=== PATIENT | male | born 1935 | race African-American/Black ===

== ENCOUNTER 2016-10-19 12:00 | Inpatient (IN) | payer MEDICARE, OTHER ==
[2016-10-19] VITALS (12 sets, daily range): BP systolic 143–243; BP diastolic 74–131; PULSE 72–105; RESP 12–21; TEMP 97.6; O2SAT 97–100
[~2016-10-19] VITALS: Ht 172.7 cm; Wt 85.0 kg
[~2016-10-19 12:00] MED LIST: AMLO10 PO; ASPI81 PO; HYDR-2768 PO; LABE200T2 PO; VITA400C28 PO
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
[2016-10-19] MEDS ORDERED: ASPIRIN 81 MG CHEW TAB CHEW ONE (13:15)
[2016-10-19] MEDS ORDERED: hydrALAZINE HCL 20 MG/ML VIAL IV PUSH ONE ×2 (13:15→16:15)
--- NOTE | 2016-10-19 13:17 | PD ---
Physical Exam Date Seen by Provider: Oct 19, 2016 Time Seen by Provider: 13:14 Narrative 81-year-old male presents to the emergency department for evaluation of left- sided chest pain that has been intermittent over the past month. He states that his son made him come to the emergency department today. He reports having left-sided chest pain earlier today, but denies any chest pain at this time. He does report a history of high cholesterol, hypertension, but is not currently taking any medications. He states he does not currently have a primary care physician. He denies any cardiac history. Patient denies any alleviating or exacerbating factors. He denies any nausea or vomiting. No diaphoresis. No headache. Patient was initially seen in triage workup was initiated there. Patient denies any recent surgery or travel. Denies any history of PE or DVT. He denies hemoptysis. GENERAL: Well-developed well-nourished male patient, ambulatory. Afebrile. SKIN: Warm and dry. HEAD: Normocephalic. Atraumatic. EYES: No scleral icterus. No injection or drainage. NECK: Supple, trachea midline. No JVD or lymphadenopathy. CARDIOVASCULAR: Regular rate and rhythm without murmurs, gallops, or rubs. RESPIRATORY: Breath sounds equal bilaterally. No accessory muscle use. Lungs sounds are clear to auscultation. GASTROINTESTINAL: Abdomen soft, non-tender, nondistended. MUSCULOSKELETAL: No cyanosis, or edema. BACK: Nontender without obvious deformity. No CVA tenderness. Data Data Last Documented VS Vital Signs Date Time Temp Pulse Resp B/P Pulse Ox O2 Delivery O2 Flow Rate FiO2 10/19/16 16:45 93 18 172/79 98 10/19/16 16:00 Room Air 10/19/16 12:02 97.6 Orders Electrocardiogram (10/19/16 12:17) Basic Metabolic Panel (Bmp) (10/19/16 12:17) Ckmb (Isoenzyme) Profile (10/19/16 12:17) Complete Blood Count With Diff (10/19/16 12:17) Magnesium (Mg) (10/19/16 12:17) Prothrombin Time / Inr (Pt) (10/19/16 12:17) Act Partial Throm Time (Ptt) (10/19/16 12:17) Troponin I (10/19/16 12:17) Lipase (10/19/16 12:17) Chest, Single Ap (10/19/16 12:17) Aspirin Chew (Aspirin Chew) (10/19/16 13:15) Hydralazine Inj (Apresoline Inj) (10/19/16 13:15) Consult Vascular Access Team (10/19/16 ) CKMB (10/19/16 14:35) CKMB% (10/19/16 14:35) Hydralazine Inj (Apresoline Inj) (10/19/16 16:15) Amlodipine (Norvasc) (10/19/16 17:00) Admit Order (Ed Use Only) (10/19/16 16:52) Labs Laboratory Tests Test 10/19/16 10/19/16 14:35 15:30 Sodium Level 138 MEQ/L Potassium Level 4.2 MEQ/L Chloride Level 107 MEQ/L Carbon Dioxide Level 25.3 MEQ/L Anion Gap 6 MEQ/L Blood Urea Nitrogen 11 MG/DL Creatinine 1.07 MG/DL Estimat Glomerular Filtration 80 ML/MIN Rate Random Glucose 82 MG/DL Calcium Level 8.6 MG/DL Magnesium Level 2.1 MG/DL Total Creatine Kinase 581 U/L Creatine Kinase MB 8.2 NG/ML Creatine Kinase MB % 1.4 % Troponin I 0.05 NG/ML Lipase 89 U/L White Blood Count 4.8 TH/MM3 Red Blood Count 5.32 MIL/MM3 Hemoglobin 15.1 GM/DL Hematocrit 45.9 % Mean Corpuscular Volume 86.3 FL Mean Corpuscular Hemoglobin 28.4 PG Mean Corpuscular Hemoglobin 32.9 % Concent Red Cell Distribution Width 15.5 % Platelet Count 196 TH/MM3 Mean Platelet Volume 8.6 FL Neutrophils (%) (Auto) 46.3 % Lymphocytes (%) (Auto) 37.3 % Monocytes (%) (Auto) 12.3 % Eosinophils (%) (Auto) 3.2 % Basophils (%) (Auto) 0.9 % Neutrophils # (Auto) 2.2 TH/MM3 Lymphocytes # (Auto) 1.8 TH/MM3 Monocytes # (Auto) 0.6 TH/MM3 Eosinophils # (Auto) 0.2 TH/MM3 Basophils # (Auto) 0.0 TH/MM3 CBC Comment DIFF FINAL Differential Comment Prothrombin Time 11.4 SEC Prothromb Time International 1.0 RATIO Ratio Activated Partial 28.0 SEC Thromboplast Time [facility] Medical Record Reviewed: Yes Supervised Visit with MILA: No Interpretation(s) Last Impressions Chest X-Ray 10/19/16 1217 Signed Impressions: Service Date/Time: Wednesday, October 19, 2016 13:29 - CONCLUSION: No acute disease. No significant change has occurred. Terry Pavon MD Differential Diagnosis ACS versus chest wall pain versus angina versus pneumonia versus pneumothorax Narrative Course 81-year-old elderly male presents to the emergency department for evaluation of intermittent left-sided chest pain for 1 month. Patient has no chest pain at this time. Blood pressure is elevated in triage. CBC, BMP, CK, troponin, lipase, magnesium, PTT, PTT/INR ordered and pending. EKG shows sinus rhythm, no acute ST changes. Patient is given aspirin 324 mg by mouth and hydralazine 10 mg IV for hypertension. CBC shows no acute abnormality. BMP shows no acute abnormality. CK is 581. Troponin is 0.05. Magnesium is 2.1. Lipase is 89. Coags show no acute abnormality. Chest x-ray shows no acute disease. No significant change has occurred. Patient will be brought into the chest pain center for further evaluation and disposition. The patient is agreeable to this plan. 1932 - the patient was admitted to the chest pain center. He is brought to my attention that the second troponin 1829 was elevated 0.12. I paged Dr. Everett, manager regional athletic monitor. 1943 - Dr. Everett returned my page. She believes the elevated troponin is due to hypertension. She would like the patient to be admitted to [facility] with her consulted. [facility] is paged for admission. 1952 - Dr. Bruce accepted admission. Diagnosis Primary Impression: Chest pain Qualified Code: R07.9 - Chest pain, unspecified type Additional Impression: Elevated troponin Admitting Information Admitting Physician Requests: Admit Palma Peres Oct 19, 2016 13:17
--- NOTE | 2016-10-19 13:51 | RADRPT ---
EXAM DATE/TIME: 10/19/2016 13:29 [facility] COMPARISON: CHEST SINGLE AP, August 28, 2010, 12:56. INDICATIONS : Chest pain. MEDICAL HISTORY : Hypertension. SURGICAL HISTORY : None. ENCOUNTER: Initial ACUITY: 1 day PAIN SCORE: 5/10 LOCATION: Left upper chest FINDINGS: A single view of the chest demonstrates the lungs to be symmetrically aerated without evidence of mas s, infiltrate or effusion. The cardiomediastinal contours are unremarkable. Osseous structures are intact. CONCLUSION: No acute disease. No significant change has occurred. Terry Pavon MD on October 19, 2016 at 13:49 Board Certified Radiologist. This report was verified electronically.
[2016-10-19 15:21] LABS: BICARBONATE 25.3 MEQ/L (21.0-32.0); MAGNESIUM 2.1 MG/DL (1.5-2.5); POTASSIUM 4.2 MEQ/L (3.5-5.1)
[2016-10-19 15:41] LABS: CKMB 8.2 NG/ML (0.5-3.6)
[2016-10-19 15:48] LABS: AUTOMATED NEUTROPHIL # 2.2 TH/MM3 (1.8-7.7); BASOPHIL % 0.9 % (0.0-2.0); EOSINOPHIL # 0.2 TH/MM3 (0-0.4); EOSINOPHIL % 3.2 % (0.0-4.0); HEMATOCRIT 45.9 % (39.0-51.0); HEMO FLAGS DIFF FINAL; LYMPH % 37.3 % (9.0-44.0); LYMPHOCYTE # 1.8 TH/MM3 (1.0-4.8); MEAN CELL VOLUME 86.3 FL (80.0-100.0); MEAN CORPUSCULAR HEMOGLOBIN 28.4 PG (27.0-34.0); MEAN CORPUSCULAR HGB CONC 32.9 % (32.0-36.0); MONO % 12.3 % (0.0-8.0); NEUT % 46.3 % (16.0-70.0); PLATELET COUNT 196 TH/MM3 (150-450); RED BLOOD COUNT 5.32 MIL/MM3 (4.50-5.90); RED CELL DISTRIBUTION WIDTH 15.5 % (11.6-17.2); WHITE BLOOD COUNT 4.8 TH/MM3 (4.0-11.0)
[2016-10-19 15:58] LABS: PROTHROMBIN TIME - PATIENT 11.4 SEC (9.8-11.6)
--- NOTE | 2016-10-19 16:56 | PD ---
Data Data Last Documented VS Vital Signs Date Time Temp Pulse Resp B/P Pulse Ox O2 Delivery O2 Flow Rate FiO2 10/19/16 16:45 93 18 172/79 98 10/19/16 16:00 Room Air 10/19/16 12:02 97.6 Orders Electrocardiogram (10/19/16 12:17) Basic Metabolic Panel (Bmp) (10/19/16 12:17) Ckmb (Isoenzyme) Profile (10/19/16 12:17) Complete Blood Count With Diff (10/19/16 12:17) Magnesium (Mg) (10/19/16 12:17) Prothrombin Time / Inr (Pt) (10/19/16 12:17) Act Partial Throm Time (Ptt) (10/19/16 12:17) Troponin I (10/19/16 12:17) Lipase (10/19/16 12:17) Chest, Single Ap (10/19/16 12:17) Aspirin Chew (Aspirin Chew) (10/19/16 13:15) Hydralazine Inj (Apresoline Inj) (10/19/16 13:15) Consult Vascular Access Team (10/19/16 ) CKMB (10/19/16 14:35) CKMB% (10/19/16 14:35) Hydralazine Inj (Apresoline Inj) (10/19/16 16:15) Amlodipine (Norvasc) (10/19/16 17:00) Admit Order (Ed Use Only) (10/19/16 16:52) Labs Laboratory Tests Test 10/19/16 10/19/16 14:35 15:30 Sodium Level 138 MEQ/L Potassium Level 4.2 MEQ/L Chloride Level 107 MEQ/L Carbon Dioxide Level 25.3 MEQ/L Anion Gap 6 MEQ/L Blood Urea Nitrogen 11 MG/DL Creatinine 1.07 MG/DL Estimat Glomerular Filtration 80 ML/MIN Rate Random Glucose 82 MG/DL Calcium Level 8.6 MG/DL Magnesium Level 2.1 MG/DL Total Creatine Kinase 581 U/L Creatine Kinase MB 8.2 NG/ML Creatine Kinase MB % 1.4 % Troponin I 0.05 NG/ML Lipase 89 U/L White Blood Count 4.8 TH/MM3 Red Blood Count 5.32 MIL/MM3 Hemoglobin 15.1 GM/DL Hematocrit 45.9 % Mean Corpuscular Volume 86.3 FL Mean Corpuscular Hemoglobin 28.4 PG Mean Corpuscular Hemoglobin 32.9 % Concent Red Cell Distribution Width 15.5 % Platelet Count 196 TH/MM3 Mean Platelet Volume 8.6 FL Neutrophils (%) (Auto) 46.3 % Lymphocytes (%) (Auto) 37.3 % Monocytes (%) (Auto) 12.3 % Eosinophils (%) (Auto) 3.2 % Basophils (%) (Auto) 0.9 % Neutrophils # (Auto) 2.2 TH/MM3 Lymphocytes # (Auto) 1.8 TH/MM3 Monocytes # (Auto) 0.6 TH/MM3 Eosinophils # (Auto) 0.2 TH/MM3 Basophils # (Auto) 0.0 TH/MM3 CBC Comment DIFF FINAL Differential Comment Prothrombin Time 11.4 SEC Prothromb Time International 1.0 RATIO Ratio Activated Partial 28.0 SEC Thromboplast Time MDM Supervised Visit with MILA: Yes Narrative Course The history, exam, and medical decision-making in the associated mid-level provider note were completed with my assistance. I reviewed and agree with the findings presented. I attest that I had a [id number] encounter with the patient on the same day, and personally performed and documented my assessment and findings in the medical record. *My assessment and Findings: 81-year-old man with intermittent chest pain for the past month, somewhat with exertion but not always. History of hypertension hyperlipidemia, out of his blood pressure and cholesterol medicines for a number of months. Had chest pain again this morning but resolved by time he came to the ED. Blood pressure is elevated responded to hydralazine. He looks well. Will need further evaluation for rule out ACS. Condition: Stable Brian Pérez MD Oct 19, 2016 16:55
[2016-10-19] MEDS ORDERED: amLODIPine BESYLATE 5 MG TAB PO ONE (17:00)
[2016-10-19] MEDS ORDERED: SODIUM CHLORIDE 0.9% FLUSH 5 ML FLUSH IVF PRN (17:15)
[2016-10-19 19:29] LABS: CKMB 8.3 NG/ML (0.5-3.6)
[2016-10-19] MEDS ORDERED: NALOXONE HCL 0.4 MG/ML AMP IV PRN (20:00)
[2016-10-19] MEDS ORDERED: SODIUM CHLORIDE 0.9% FLUSH 5 ML FLUSH FLUSH PRN (20:00)
[2016-10-19] MEDS ORDERED: SODIUM CHLORIDE 0.9% FLUSH 5 ML FLUSH IVF SCH (21:00)
[2016-10-19] MEDS: SODIUM CHLORIDE 0.9% FLUSH 5 ML FLUSH FLUSH SCH (21:00)
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
[2016-10-19] MEDS ORDERED: ENOXAPARIN SODIUM 100 MG/ML SYRINGE SQ ONE (21:45)
[2016-10-19 22:09] LABS: CKMB 8.3 NG/ML (0.5-3.6)
[2016-10-20] VITALS (7 sets, daily range): BP systolic 137–220; BP diastolic 70–100; PULSE 77–85; RESP 16–20; TEMP 98.1; O2SAT 96–98
[2016-10-20] MEDS: hydrALAZINE HCL 20 MG/ML VIAL IV PUSH PRN ×2 (02:16→06:11)
[2016-10-20 03:58] LABS: AUTOMATED NEUTROPHIL # 2.1 TH/MM3 (1.8-7.7); BASOPHIL # 0.1 TH/MM3 (0-0.2); BASOPHIL % 2.5 % (0.0-2.0); EOSINOPHIL # 0.2 TH/MM3 (0-0.4); EOSINOPHIL % 3.3 % (0.0-4.0); HEMATOCRIT 51.2 % (39.0-51.0); LYMPH % 46.4 % (9.0-44.0); LYMPHOCYTE # 2.5 TH/MM3 (1.0-4.8); MEAN CELL VOLUME 86.4 FL (80.0-100.0); MEAN CORPUSCULAR HEMOGLOBIN 27.9 PG (27.0-34.0); MEAN CORPUSCULAR HGB CONC 32.3 % (32.0-36.0); NEUT % 38.8 % (16.0-70.0); PLATELET COUNT 189 TH/MM3 (150-450); RED BLOOD COUNT 5.93 MIL/MM3 (4.50-5.90); RED CELL DISTRIBUTION WIDTH 15.7 % (11.6-17.2); WHITE BLOOD COUNT 5.5 TH/MM3 (4.0-11.0)
[2016-10-20 04:08] LABS: HEMO FLAGS AUTO DIFF
[2016-10-20 04:15] LABS: BICARBONATE 25.5 MEQ/L (21.0-32.0); POTASSIUM 3.7 MEQ/L (3.5-5.1)
[2016-10-20 04:34] LABS: CKMB 7.2 NG/ML (0.5-3.6)
[2016-10-20 05:38] LABS: EOSINOPHILS 5 % (0-4); NEUTROPHIL # MANUAL DIFF 2.9 TH/MM3 (1.8-7.7); POLYS (SEG NEUTROPHILS) 53 % (16-70); SCAN/DIFF FINAL DIFF MANUAL; WBC DIFF SAMPLE 100
[2016-10-20] MEDS: SODIUM CHLORIDE 0.9% FLUSH 5 ML FLUSH FLUSH SCH (09:21)
[2016-10-20] MEDS ORDERED: ASPI1TAB69 PO (09:30)
[2016-10-20] MEDS ORDERED: HYDR25TA5 PO (09:30)
[2016-10-20] MEDS ORDERED: LABE200T2 PO (09:30)
[2016-10-20] MEDS ORDERED: VITATAB56 PO (09:30)
[2016-10-20] MEDS ORDERED: AMLO10TA2 PO (09:30)
[2016-10-20] MEDS ORDERED: VITA400C28 PO (09:31)
[2016-10-20] MEDS ORDERED: HEPARIN-NS/PF INJ 500 ML ONE (10:44)
[2016-10-20] MEDS ORDERED: MIDAZOLAM HCL 2 MG/2 ML VIAL ONE (11:03)
[2016-10-20] MEDS ORDERED: IOHEXOL 350 MG/ML 100 ML BTL (for Cath Lab) OTHER ONE (11:35)
--- NOTE | 2016-10-20 13:03 | MA ---
cc: TRENA DUMONT DATE 10/20/2016 DATE OF 1935 PROCEDURE PERFORMED 1. Left heart catheterization 2. Selective right and left coronary angiography. 3. Left ventriculogram INDICATION Chest pain/non-ST elevation IN APPROACH Right transfemoral PROCEDURE DESCRIPTION Consent signed. The patient was brought into the cardiac orthodontic lab technician in a fasting state. The right groin was prepped and draped in a sterile fashion. Using 1% lidocaine for local anesthesia and a micropuncture kit, a 5-Zambian sheath was inserted into the right common femoral artery. Right common femoral artery angiography was performed to confirm position of the sheath. Then selective right and left coronary angiography was performed with a JR-4 and JL-4 diagnostic catheter. The left ventricle was crossed with a 5-Zambian angled pigtail, followed by hemodynamics recording and ventriculogram and pullback. The patient tolerated the procedure well without complications. ESTIMATED BLOOD LOSS Less than 30 cc TOTAL CONTRAST USED 80 cc The right groin access site was closed with manual pressure. ANGIOGRAPHIC DESCRIPTION The left ventricular pressure was 183/80 with an LVEDP of 21. The aortic pressure was 175/92 with a mean of 126. There was no gradient with pullback from the left ventricle to the aorta. Left ventriculogram revealed a symmetrically toni ventricle with an estimated ejection fraction of 60%. ANGIOGRAPHY 1. The right coronary is a nondominant vessel that has LUIGI-3 flow and nonobstructive coronary artery disease. He has an RV branch that is patent. 2. Left main is patent without any CAD. 3. The left circumflex artery is patent with nonobstructive CAD and has LUIGI-3 flow. OM1 is tortuous with LUIGI-3 flow and nonobstructive coronary artery disease. The AV groove part of the circumflex is also patent with nonobstructive CAD giving off the PDA. 4. The ramus vessel has an ostial 40% lesion. It has LUIGI-3 flow. Distal it bifurcates and has minimal luminal irregularities. 5. The LAD is a transapical vessel. It has minimal luminal irregularities throughout, however, it has LUIGI-3 flow and nonobstructive coronary artery disease. Also, he has one diagonal which is a small and patent. CONCLUSION 1. Nonobstructive coronary artery disease. 2. Preserve the LV systolic function 3. Elevated LVEDP RECOMMENDATIONS 1. Continue aggressive medical management for primary prevention of coronary artery disease and hypertension. 2. Therapeutic lifestyle changes. 3. Post cath care. 4. Follow with his primary livestock sales representative upon discharge from the hospital. MD KJ Zimmerman/ANDRE /11:34 AM /12:50 PM GISSELLE
--- NOTE | 2016-10-20 15:24 | HHI.PR ---
Addendum to Inpatient Note Additional Information heart cath is clear , pt cleared for dc by cardiology Discharge patient to home Condition on discharge: Improved healthy heart Diet as tolerated Ad Rahel activity Rx written: see med rec Follow-up with primary care physician in 1 week Ana Sue MD Oct 20, 2016 15:24
--- NOTE | 2016-10-20 15:25 | HHI.PR ---
Subjective Remarks doing well , no cp , sob no f/c Objective Vitals Vital Signs Date Time Temp Pulse Resp B/P Pulse Ox O2 Delivery O2 Flow Rate FiO2 10/20/16 10:35 77 20 157/84 97 10/20/16 09:00 77 19 137/74 96 Room Air 10/20/16 07:42 96 21 10/20/16 07:00 89 96 Room Air 10/20/16 07:00 98.1 85 20 146/70 96 Room Air 10/20/16 06:25 84 16 176/77 96 Room Air 10/20/16 04:14 155/86 10/20/16 02:17 84 16 220/100 98 Room Air 10/19/16 21:05 97 10/19/16 19:26 96 16 167/79 100 Room Air 10/19/16 18:30 105 15 143/83 98 Room Air 10/19/16 17:24 98 18 167/74 98 Room Air 10/19/16 16:45 93 18 172/79 98 10/19/16 16:15 76 212/109 10/19/16 16:00 73 18 216/93 97 Room Air 10/19/16 15:45 72 196/75 10/19/16 15:38 78 21 212/94 99 Room Air Result Diagram: 10/20/16 0338 10/20/16 0328 A/P Problem List: (1) Chest pain ICD Code: R07.9 Status: Acute (2) Elevated troponin ICD Code: R79.89 Status: Acute (3) Hypertensive emergency ICD Code: I16.1 Status: Acute Assessment and Plan 81-year-old male with history of hypertension, DM, osteoarthritis and asthma presented with: Chest pain/elevated troponin, ruled out NSTEMI Consulted cardiology, s/p heart cath which was clear , pt cleared for dc by cardiology Hypertensive emergency, Apresoline IV given in EDx2 -Apresoline 10mg IV PRN -Monitor vitals/tele DVT prophylaxis: scds Discharge Planning Discharge patient to home Condition on discharge: Improved healthy heart Diet as tolerated Ad Rahel activity Rx written: see med rec Follow-up with primary care physician in 1 week Problem Qualifiers (1) Chest pain: Qualified Code: R07.9 - Chest pain, unspecified type Ana Sue MD Oct 20, 2016 15:25
[2016-10-20] MEDS ORDERED: LORazepam 1 MG TAB PO ONE (16:00)
[2016-10-20] MEDS ORDERED: LABETALOL HCL 200 MG TAB PO SCH (21:00)
[2016-10-21] MEDS ORDERED: ASPIRIN EC 81 MG TABEC PO SCH (09:00)
[2016-10-21] MEDS ORDERED: CHOLECALCIFEROL (VIT D3) 400 UNIT TAB PO SCH (09:00)
[2016-10-21] MEDS ORDERED: HYDROCHLOROTHIAZIDE 25 MG TAB PO SCH (09:00)
--- NOTE | 2016-10-21 15:51 | EKG ---
Date Performed: 10/19/2016 Time Performed: 21:13:11 PTAGE: 81 years EKG: Sinus rhythm WITH SINUS ARRHYTHMIA NONSPECIFIC T-WAVE ABNORMALITY BORDERLINE ECG PREVIOUS TRACING : 10/19/2016 18.12 Since previous tracing, no significant change noted DOCTOR: Norberto Barahona Interpretating Date/Time 10/21/2016 15:48:52
--- NOTE | 2016-10-21 15:52 | EKG ---
Date Performed: 10/19/2016 Time Performed: 18:12:45 PTAGE: 81 years EKG: SINUS TACHYCARDIA NONSPECIFIC ST & T-WAVE ABNORMALITY ABNORMAL RHYTHM ECG PREVIOUS TRACING : 10/19/2016 12.28 Since previous tracing, no significant change noted DOCTOR: Norberto Barahona Interpretating Date/Time 10/21/2016 15:50:04
--- NOTE | 2016-10-21 15:54 | EKG ---
Date Performed: 10/19/2016 Time Performed: 12:28:54 PTAGE: 81 years EKG: Sinus rhythm WITH SINUS ARRHYTHMIA NONSPECIFIC T-WAVE ABNORMALITY BORDERLINE ECG PREVIOUS TRACING : 08/29/2010 00.54 Since previous tracing, no significant change noted DOCTOR: Norberto Barahona Interpretating Date/Time 10/21/2016 15:51:42
== END 2016-10-20 17:25 | disposition home or self-care (01) | DRG 287 ==
LOC: NEPA 12:00 → NEDA 16:54 → OBSVTOIN 16:54 → NEDH 23:57 → UNDODEPER 10-21 02:52
PROVIDERS: ADMIT Hospitalist; ATTEND Hospitalist
PROC: B2111ZZ Fluoroscopy of Multiple Coronary Arteries using Low Osmolar Contrast (ICD-10-PCS; 2016-10-20)
PROC: B2151ZZ Fluoroscopy of Left Heart using Low Osmolar Contrast (ICD-10-PCS; 2016-10-20)
PROC: 4A023N7 Measurement of Cardiac Sampling and Pressure, Left Heart, Percutaneous Approach (ICD-10-PCS; principal; 2016-10-20 12:15)
DX: I16.1 Hypertensive emergency (principal); E11.9 Type 2 diabetes mellitus without complications; I25.10 Atherosclerotic heart disease of native coronary artery without angina pectoris; E78.00 Pure hypercholesterolemia, unspecified; Z91.14 Patient's other noncompliance with medication regimen; J45.909 Unspecified asthma, uncomplicated; M19.90 Unspecified osteoarthritis, unspecified site; R74.8 Abnormal levels of other serum enzymes; Z87.891 Personal history of nicotine dependence
CPT/HCPCS: 71010; 80048; 82550; 82552; 83690; 83735; 84484; 85007; 85025; 85027; 85610; 85730; 93005; 93458; 96374; 96376; C1769; C1893; J0360; J1644; J1650; J2250; J3010; Q9967

== ENCOUNTER 2017-01-25 11:42 | Emergency (ER) | payer MEDICARE ==
[~2017-01-25] VITALS: Ht 172.7 cm; Wt 85.0 kg
[~2017-01-25 11:42] MED LIST changes: -AMLO10 PO; +AMLO10TA2 PO; +ASPI1TAB69 PO; -ASPI81 PO; -HYDR-2768 PO; +HYDR25TA5 PO; -VITA400C28 PO; +VITATAB56 PO
[2017-01-25 11:44] VITALS: BP 143/78; PULSE 84; RESP 16; TEMP 98.2; O2SAT 98
--- NOTE | 2017-01-25 11:52 | PD ---
Physical Exam Time Seen by Provider: 11:47 Narrative 81yo requesting medication refills on all his medications. He has not taken his medications in over a year. Has not been able to get a PCP to fill his medications. VS reviewed. Patient seen in triage. Awaiting bed placement. Data Data Last Documented VS Vital Signs Date Time Temp Pulse Resp B/P Pulse Ox O2 Delivery O2 Flow Rate FiO2 01/25/17 11:44 98.2 84 16 143/78 98 MDM Supervised Visit with MILA: Elina Clay January 25, 2017 11:52
--- NOTE | 2017-01-25 12:07 | PD ---
HPI Chief Complaint: Medication Refill Request Time Seen by Provider: 12:07 Travel History International Travel<30 days: No Contact w/Intl Traveler<30days: No Traveled to known affect area: No History of Present Illness HPI 81-year-old male came to the emergency room with history of hypertension. Patient says that he does not have a primary care since he came out of the sn[facility]. He has been in the snf for 4 years. Patient was seen in this emergency room and then admitted for chest pain about a month ago he had a cardiac catheterization done at that point and was discharged home with medications but said he never got any prescriptions and hence does not have any medications to take. When I went to see him his blood pressure was 238/148. He says he gets on and off chest pain. However his cardiac catheterization report shows no significant occlusion of the coronary arteries. He otherwise does not appear to be in any distress. FORMERLY [facility], [facility] Past Medical History Narrative Medical List of his past medical, surgical, social and family history is reviewed from the nursing note. Asthma: Yes Diabetes: Yes Patient Takes Glucophage: No Diminished Hearing: No Hypertension: Yes Respiratory: Yes (asthma) Influenza Vaccination: No ?: Not Past Surgical History Joint Replacement: Yes Other Surgery: Yes (BULLETS REMOVED) Social History Alcohol Use: No Tobacco Use: No (QUIT 1995) Substance Use: No Allergies-Medications (Allergen,Severity, Reaction): Coded Allergies: No Known Allergies (Verified , 01/25/17) Comments No known drug allergies. Reported Meds & Prescriptions Reported Meds & Active Scripts Active Aspirin Low Dose (Aspirin) 81 Mg Chew 81 Mg CHEW DAILY 30 Days Labetalol (Labetalol HCl) 200 Mg Tab 200 Mg PO BID 30 Days Amlodipine (Amlodipine Besylate) 10 Mg Tab 10 Mg PO DAILY Vitamin D-400 (Cholecalciferol) 400 Unit Tab 400 Units PO DAILY Hydrochlorothiazide 25 Mg Tab 25 Mg PO DAILY Reported Aspirin 81 Mg Tabdr 81 Mg PO DAILY Labetalol (Labetalol HCl) 200 Mg Tab 200 Mg PO BID Narrative Medication List of his home medications reviewed from the nursing note. Review of Systems Except as stated in HPI: all other systems reviewed are Neg Physical Exam Narrative GENERAL: Awake, alert, no obvious distress SKIN: Focused skin assessment warm/dry. Dry skin. HEAD: Atraumatic. Normocephalic. EYES: Pupils equal and round. No scleral icterus. No injection or drainage. ENT: No nasal bleeding or discharge. Mucous membranes pink and moist. NECK: Trachea midline. No JVD. CARDIOVASCULAR: Regular rate and rhythm. No murmur appreciated. RESPIRATORY: No accessory muscle use. Clear to auscultation. Breath sounds equal bilaterally. GASTROINTESTINAL: Abdomen soft, non-tender, nondistended. Hepatic and splenic margins not palpable. MUSCULOSKELETAL: No obvious deformities. No clubbing. No cyanosis. No edema. NEUROLOGICAL: Awake and alert. No obvious cranial nerve deficits. Motor grossly within normal limits. Normal speech. PSYCHIATRIC: Appropriate mood and affect; insight and judgment normal. Data Data Last Documented VS Vital Signs Date Time Temp Pulse Resp B/P Pulse Ox O2 Delivery O2 Flow Rate FiO2 01/25/17 13:59 187/84 01/25/17 11:44 98.2 84 16 98 Orders Amlodipine (Norvasc) (01/25/17 12:30) Hydrochlorothiazide (Hydrodiuril) (01/25/17 12:30) Labetalol (Trandate) (01/25/17 12:30) Clonidine (Catapres) (01/25/17 12:30) MDM Medical Decision Making Medical Screen Exam Complete: Yes Emergency Medical Condition: Yes Medical Record Reviewed: Yes Differential Diagnosis Malignant hypertension, essential hypertension Narrative Course 2:03 PM patient was given all his prescribed medications 1 dose each in the emergency room. Recent blood pressure was 185 systolic. I'm discharging him home with all the prescriptions. I've encouraged him to find a primary care for himself as soon as possible. Procedures EKG Prior to Arrival: No Diagnosis Primary Impression: Malignant hypertension Additional Impression: Essential hypertension Referrals: Primary Care Physician Additional Instructions: Please try to find a primary care for yourselves and follow-up with them. Ideally they should refill your prescriptions as you run out of them. Please return to the ER if the condition worsens or any other new concerns. Med/Other Pt SpecificInfo: Prescription(s) given Scripts Aspirin (Aspirin Low Dose)81 Mg Chew81 Mg CHEW DAILY 30 Days Ref 0 Prov:Jammie Prater MD 01/25/17 Labetalol 200 Mg [id number] Mg PO BID 30 Days Ref 0 Prov:Jammie Prater MD 01/25/17 Amlodipine 10 Mg Tab10 Mg PO DAILY #30 TAB Ref 0 Prov:Jammie Prater MD 01/25/17 Cholecalciferol (Vitamin D-400)400 Unit [id number] Units PO DAILY #1 BOTTLE Ref 0 Prov:Jammie Prater MD 01/25/17 Hydrochlorothiazide 25 Mg Tab25 Mg PO DAILY #30 TAB Ref 0 Prov:Jammie Prater MD 01/25/17 Disposition: 01 DISCHARGE HOME Condition: Stable Jammie Prater MD January 25, 2017 12:07
[2017-01-25] MEDS ORDERED: cloNIDine HCL 0.1 MG TAB PO ONE (12:30)
[2017-01-25] MEDS ORDERED: LABETALOL HCL 200 MG TAB PO ONE (12:30)
[2017-01-25] MEDS ORDERED: HYDROCHLOROTHIAZIDE 25 MG TAB PO ONE (12:30)
[2017-01-25 13:09] VITALS: BP 247/119
[2017-01-25 13:46] VITALS: BP 193/88
[2017-01-25] MEDS ORDERED: AMLO10TA2 PO (13:58)
[2017-01-25] MEDS ORDERED: VITATAB56 PO (13:58)
[2017-01-25] MEDS ORDERED: HYDR25TA5 PO (13:58)
[2017-01-25 13:59] VITALS: BP 187/84
[2017-01-25] MEDS ORDERED: ASPI81CH37 CHEW (13:59)
[2017-01-25] MEDS ORDERED: LABE200T2 PO (13:59)
== END 2017-01-25 14:13 | disposition home or self-care (01) ==
LOC: NEPD 11:42
DX: I10 Essential (primary) hypertension (principal); J45.909 Unspecified asthma, uncomplicated; E11.9 Type 2 diabetes mellitus without complications
CPT/HCPCS: 99283